=== PATIENT | female | born 1930 | race Caucasian/White ===

== ENCOUNTER 2017-03-15 12:20 | Inpatient (IN) | payer OTHER, MEDICARE ==
[~2017-03-15] VITALS: Ht 1712.2 cm; Wt 41.7 kg
[2017-03-15 13:39] LABS: HEMATOCRIT 45.2 % (36.0-46.0); MCH 28.2 PG (29.0-34.0); MCHC 33.4 G/DL (30.0-36.0); MCV 84.3 FL (83-99); MEAN PLAT.VOLUME 9.9 uM^3 (9.5-12.4); PLATELET COUNT 371 K/uL (156-360); RBC DIS.WIDTH-SD 49.3 % (39-53); RED BLOOD COUNT 5.36 M/uL (3.80-5.20); WHITE BLOOD COUNT 11.4 K/uL (4.1-10.2)
[2017-03-15 13:53] LABS: CHLORIDE 97 mEq/L (99-109); POTASSIUM 5.1 mEq/L (3.7-5.4); SODIUM 131 mEq/L (136-147)
[2017-03-15 13:54] LABS: GLUCOSE 87 mg/dL (70-99)
[2017-03-15 13:56] LABS: ANION GAP 10 MEQ/L (2-14)
[2017-03-15 13:58] LABS: GFR ESTIMATE (CALCULATED) 56 mL/min/
[2017-03-15 13:59] LABS: UREA NITROGEN (BUN) 28 mg/dL (9-23)
[2017-03-15 14:54] LABS: TOTAL BILIRUBIN 0.3 mg/dL (0.0-1.0)
[2017-03-15 14:55] LABS: ALKALINE PHOSPHATASE 72 IU/L (3-129)
[2017-03-15 14:57] LABS: DIRECT BILIRUBIN 0.1 mg/dL (0.0-0.3)
[2017-03-15 14:58] LABS: LIPASE 19 U/L (1.0-51.0)
[2017-03-15] MEDS ORDERED: SYNTHROID88 MCG PO (16:07)
[2017-03-15] MEDS ORDERED: HYOSCYAMINE0.125 M1 PO (16:07)
[2017-03-15] MEDS ORDERED: PERCOCET 10/1 TABLET PO (16:07)
[2017-03-15] MEDS ORDERED: TRAZODONE HCL50 MG PO (16:08)
[2017-03-15] MEDS ORDERED: TRAVATAN Z5 ML BOTH EYES (16:08)
[2017-03-15] MEDS ORDERED: TIZANIDINE HCL2 MG PO (16:08)
[2017-03-15] MEDS ORDERED: LISINOPRIL10 MG PO (16:08)
[2017-03-15] MEDS ORDERED: DORZOLAMIDE HCL10 ML RIGHT EYE (16:08)
[2017-03-15] MEDS ORDERED: VITAMIN E100 UNIT PO (16:09)
[2017-03-15] MEDS ORDERED: CYANOCOBALAM1000 MCG PO (16:09)
[2017-03-15] MEDS ORDERED: ASCORBIC ACID500 M3 PO (16:09)
[2017-03-15] MEDS ORDERED: CALCIUM 500 MG1 EACH PO (16:09)
[2017-03-15] MEDS ORDERED: MAGNESIUM400 M1 PO (16:09)
[2017-03-15] MEDS ORDERED: MELATONIN3 MG PO (16:10)
[2017-03-15 19:17] LABS: APPEARANCE CLEAR/COLORLESS; RED CELL AREA COUNTED 18; RED CELL COUNT 0 /MM^3 (0-1); RED CELL DILUTION 1; WBC AREA COUNTED 18; WBC DILUTION 1; WHITE CELL COUNT 0 /MM^3 (0-5); WHITE CELL RAW COUNT 0
[2017-03-15 20:46] LABS: Estimated Average Glucose 114 mg/dL (70-123); HEMOGLOBIN A1c (GLYCOHEMOGLOB) 5.6 % HGB (Below 5.7)
[2017-03-15 21:20] LABS: TOTAL CHOLESTEROL 222 mg/dL (Desirable<200); TRIGLYCERIDES 79 MG/DL (Normal: <150)
[2017-03-15 21:21] LABS: HDL CHOLESTEROL 116 MG/DL (Desirable>=50); LDL CHOLESTEROL 90 mg/dL (Desirable<100); NON-HDL CHOLESTEROL 106 mg/dL (Desirable<160)
[2017-03-15 21:35] VITALS: BP 226/95
[2017-03-15 21:51] VITALS: BP 226/95
[2017-03-16] VITALS: BP 165/77
[2017-03-16 04:00] VITALS: BP 163/72
[2017-03-16 06:02] LABS: HEMATOCRIT 40.6 % (36.0-46.0); MCH 29.3 PG (29.0-34.0); MCHC 34.2 G/DL (30.0-36.0); MCV 85.7 FL (83-99); MEAN PLAT.VOLUME 9.9 uM^3 (9.5-12.4); PLATELET COUNT 334 K/uL (156-360); RBC DIS.WIDTH-CV 16.1 % (11.8-14.6); RBC DIS.WIDTH-SD 50.4 % (39-53); RED BLOOD COUNT 4.74 M/uL (3.80-5.20)
[2017-03-16 06:48] LABS: ALKALINE PHOSPHATASE 58 IU/L (3-129); ANION GAP 5 MEQ/L (2-14); CHLORIDE 101 MEQ/L (99-109); GFR ESTIMATE (CALCULATED) > 59 mL/min/; POTASSIUM 4.9 MEQ/L (3.7-5.4); SAMPLE HEMOLYSIS CHECK 0; SAMPLE ICTERIC CHECK 0; SAMPLE LIPEMIA CHECK 0; SODIUM 133 MEQ/L (136-147); TOTAL BILIRUBIN 0.3 MG/DL (0.0-1.0); UREA NITROGEN (BUN) 19 mg/dL (9-23)
[2017-03-16 06:55] LABS: GLUCOSE 112 mg/dL (70-99)
[2017-03-16 07:25] VITALS: BP 158/72
[2017-03-16 11:08] VITALS: BP 166/75
[2017-03-16 15:30] VITALS: BP 154/71
[2017-03-16 15:53] LABS: INFLUENZA A VIRAL ANTIGEN NEGATIVE; INFLUENZA B VIRAL ANTIGEN NEGATIVE
[2017-03-16 20:08] VITALS: BP 122/68
[2017-03-17] VITALS (7 sets, daily range): BP systolic 121–169; BP diastolic 20–95
[2017-03-18 04:13] VITALS: BP 140/67
[2017-03-18 07:25] VITALS: BP 148/76
[2017-03-18 10:52] VITALS: BP 94/55
[2017-03-18 13:18] VITALS: BP 122/58
[2017-03-18] MEDS ORDERED: NIFEDIPINE ER30 MG PO (14:32)
[2017-03-18] MEDS ORDERED: TRAZODONE HCL50 MG PO (14:32)
[2017-03-18] MEDS ORDERED: TYLENOL REGULA325 MG PO (14:32)
[2017-03-18] MEDS ORDERED: Robitussin AC,Tussi- PO (14:32)
[2017-03-18] MEDS ORDERED: DOCUSATE SODIU100 MG PO (14:32)
[2017-03-18] MEDS ORDERED: DORZOLAMIDE HCL10 ML RIGHT EYE (14:32)
[2017-03-18] MEDS ORDERED: LATANOPROST2.5 ML BOTH EYES (14:32)
[2017-03-18] MEDS ORDERED: OXYCODONE-APAP1 EACH PO (14:32)
[2017-03-18] MEDS ORDERED: ASPIR-LOW81 MG PO (14:32)
== END 2017-03-18 21:17 | DRG 78 ==
LOC: EME 12:20 → EDOF 19:48 → 5SOUTH 19:48
PROVIDERS: Hospitalist; Internal Medicine; Physician Assistant
PROC: 009U3ZX Drainage of Spinal Canal, Percutaneous Approach, Diagnostic (ICD-10-PCS; principal; 2017-03-15)
DX: I67.4 Hypertensive encephalopathy (principal); E87.1 Hypo-osmolality and hyponatremia; I67.2 Cerebral atherosclerosis; R26.0 Ataxic gait; E03.9 Hypothyroidism, unspecified; R51 Headache; I65.21 Occlusion and stenosis of right carotid artery; R42 Dizziness and giddiness; B34.9 Viral infection, unspecified; R11.0 Nausea; K58.9 Irritable bowel syndrome, unspecified; D72.829 Elevated white blood cell count, unspecified; Z87.891 Personal history of nicotine dependence
CPT/HCPCS: 70450; 70551; 71020; 80048; 80053; 80061; 80076; 81003; 82945; 83036; 83690; 84157; 85027; 85651; 87070; 87205; 87502; 89051; 93005; 93880; 99281; 99285; J1644; J2270; J7030

== ENCOUNTER 2017-06-02 03:33 | Inpatient (IN) | payer OTHER, MEDICARE ==
[~2017-06-02] VITALS: Ht 157.5 cm; Wt 50.6 kg
[~2017-06-02 03:33] MED LIST: ASCORBIC ACID500 M3 PO; ASPIR-LOW81 MG PO; CALCIUM 600 +1 EAC3 PO; CYANOCOBALAM1000 MCG PO; DOCUSATE SODIU100 MG PO; DORZOLAMIDE HCL10 ML RIGHT EYE; HYOSCYAMINE0.125 M1 PO; LATANOPROST2.5 ML BOTH EYES; LEVOTHYROXINE100 MCG PO; LISINOPRIL10 MG PO; MAGNESIUM400 M1 PO; MELATONIN3 MG PO; NIFEDIPINE ER30 MG PO; OXYCODONE-APAP1 EACH PO; PERCOCET 10/1 TABLET PO; Robitussin AC,Tussi- PO; TIZANIDINE HCL2 MG PO; TRAVATAN Z5 ML BOTH EYES; TRAZODONE HCL50 MG PO; TYLENOL REGULA325 MG PO; VITAMIN E100 UNIT PO
[2017-06-02 04:14] LABS: HEMATOCRIT 36.7 % (36.0-46.0); MCHC 34.6 G/DL (30.0-36.0); MCV 83.8 FL (83-99); PLATELET COUNT 408 K/uL (156-360); RBC DIS.WIDTH-CV 14.3 % (11.8-14.6); RBC DIS.WIDTH-SD 43.8 % (39-53); RED BLOOD COUNT 4.38 M/uL (3.80-5.20); WHITE BLOOD COUNT 14.8 K/uL (4.1-10.2)
[2017-06-02 04:27] LABS: CHLORIDE 92 mEq/L (99-109); SODIUM 126 mEq/L (136-147)
[2017-06-02 04:28] LABS: GLUCOSE 117 mg/dL (70-99)
[2017-06-02 04:30] LABS: ANION GAP 10 MEQ/L (2-14)
[2017-06-02 04:32] LABS: GFR ESTIMATE (CALCULATED) 56 mL/min/
[2017-06-02 04:33] LABS: UREA NITROGEN (BUN) 15 mg/dL (9-23)
[2017-06-02 04:41] LABS: POTASSIUM 3.6 mEq/L (3.7-5.4)
[2017-06-02 08:31] LABS: ADD MIUA? YES; BILIRUBIN NEGATIVE; BLOOD NEGATIVE; COLOR STRAW ((YELLOW)); GLUCOSE (STRIP) NEGATIVE; KETONES NEGATIVE; LEUKOCYTES TRACE; NITRITE NEGATIVE; PROTEIN (STRIP) 30; SPECIFIC GRAVITY 1.011 (1.000-1.030); UROBILINOGEN 0.2 MG/DL (0.2-1.0)
[2017-06-02 08:38] LABS: BACTERIA NONE SEEN /HPF; EPITHELIAL CELLS RARE /HPF; MUCUS NONE SEEN /LPF; RED BLOOD CELLS 0-5 /HPF (0-5)
[2017-06-02 09:17] VITALS: BP 160/81
[2017-06-02 10:10] VITALS: BP 194/100
[2017-06-02] MEDS ORDERED: GABAPENTIN300 MG PO (10:28)
[2017-06-02] MEDS ORDERED: PERCOCET 10/1 TABLET PO (10:28)
[2017-06-02] MEDS ORDERED: RALOXIFENE HCL60 MG PO (10:29)
[2017-06-02] MEDS ORDERED: TRAVATAN Z5 ML BOTH EYES (10:29)
[2017-06-02] MEDS ORDERED: DULOXETINE HCL20 MG PO (10:29)
[2017-06-02] MEDS ORDERED: ZOLPIDEM TARTRAT5 MG PO (10:29)
[2017-06-02] MEDS ORDERED: OMEPRAZOLE40 M1 PO (10:29)
[2017-06-02] MEDS ORDERED: NIFEDIPINE ER30 MG PO (10:30)
[2017-06-02 11:44] VITALS: BP 163/71
[2017-06-02 15:54] VITALS: BP 167/95
[2017-06-02 19:04] VITALS: BP 180/88
[2017-06-02 23:45] LABS: POINT-OF-CARE METER ID UU14174225
[2017-06-02 23:49] VITALS: BP 131/60
[2017-06-03 03:41] VITALS: BP 127/60
[2017-06-03 05:56] LABS: POINT-OF-CARE METER ID UU14188625
[2017-06-03 07:20] VITALS: BP 174/81
[2017-06-03 10:31] LABS: HEMATOCRIT 36.2 % (36.0-46.0); MCH 30.3 PG (29.0-34.0); MCHC 34.5 G/DL (30.0-36.0); MEAN PLAT.VOLUME 10.3 uM^3 (9.5-12.4); PLATELET COUNT 376 K/uL (156-360); RBC DIS.WIDTH-CV 15.4 % (11.8-14.6); RBC DIS.WIDTH-SD 49.5 % (39-53); RED BLOOD COUNT 4.12 M/uL (3.80-5.20); WHITE BLOOD COUNT 11.9 K/uL (4.1-10.2)
[2017-06-03 10:32] LABS: MCV 87.9 FL (83-99)
[2017-06-03 10:56] LABS: ANION GAP 8 MEQ/L (2-14); CHLORIDE 104 MEQ/L (99-109); GFR ESTIMATE (CALCULATED) > 59 mL/min/; GLUCOSE 120 mg/dL (70-99); POTASSIUM 4.1 MEQ/L (3.7-5.4); SAMPLE HEMOLYSIS CHECK 0; SAMPLE ICTERIC CHECK 0; SAMPLE LIPEMIA CHECK 0; UREA NITROGEN (BUN) 7 mg/dL (9-23)
[2017-06-03 10:59] LABS: SODIUM 137 MEQ/L (136-147)
[2017-06-03 11:05] VITALS: BP 155/67
[2017-06-03 11:23] LABS: POINT-OF-CARE METER ID UU14174225
[2017-06-03 15:02] VITALS: BP 149/67
[2017-06-03 16:11] LABS: POINT-OF-CARE METER ID UU13113717
[2017-06-03 19:42] VITALS: BP 137/79
[2017-06-03 23:28] VITALS: BP 132/62
[2017-06-04 03:12] VITALS: BP 139/74
[2017-06-04 06:03] LABS: HEMATOCRIT 35.3 % (36.0-46.0); MCHC 33.1 G/DL (30.0-36.0); MCV 87.4 FL (83-99); MEAN PLAT.VOLUME 10.4 uM^3 (9.5-12.4); PLATELET COUNT 367 K/uL (156-360); RBC DIS.WIDTH-CV 15.2 % (11.8-14.6); RBC DIS.WIDTH-SD 48.8 % (39-53); RED BLOOD COUNT 4.04 M/uL (3.80-5.20); WHITE BLOOD COUNT 11.1 K/uL (4.1-10.2)
[2017-06-04 06:44] LABS: ANION GAP 8 MEQ/L (2-14); CHLORIDE 107 MEQ/L (99-109); GFR ESTIMATE (CALCULATED) > 59 mL/min/; GLUCOSE 123 mg/dL (70-99); SAMPLE HEMOLYSIS CHECK 0; SAMPLE ICTERIC CHECK 0; SAMPLE LIPEMIA CHECK 0; SODIUM 137 MEQ/L (136-147); UREA NITROGEN (BUN) 5 mg/dL (9-23)
[2017-06-04 06:50] LABS: POTASSIUM 3.1 MEQ/L (3.7-5.4)
[2017-06-04 08:04] VITALS: BP 136/71
[2017-06-04 09:17] LABS: MAGNESIUM 1.4 mg/dl (1.3-2.7)
[2017-06-04 11:31] VITALS: BP 165/77
[2017-06-04 16:23] VITALS: BP 179/83
[2017-06-04 19:38] VITALS: BP 184/97
[2017-06-05] VITALS: BP 176/86
[2017-06-05 03:43] VITALS: BP 170/77
[2017-06-05 07:40] VITALS: BP 166/80
[2017-06-05 09:20] LABS: HEMATOCRIT 35.8 % (36.0-46.0); MCHC 33.2 G/DL (30.0-36.0); MCV 87.1 FL (83-99); MEAN PLAT.VOLUME 10.4 uM^3 (9.5-12.4); PLATELET COUNT 368 K/uL (156-360); RBC DIS.WIDTH-CV 15.3 % (11.8-14.6); RED BLOOD COUNT 4.11 M/uL (3.80-5.20); WHITE BLOOD COUNT 9.4 K/uL (4.1-10.2)
[2017-06-05 09:25] LABS: POINT-OF-CARE METER ID UU13113717
[2017-06-05 09:54] LABS: ANION GAP 6 MEQ/L (2-14); CHLORIDE 108 MEQ/L (99-109); POTASSIUM 3.3 MEQ/L (3.7-5.4); SAMPLE HEMOLYSIS CHECK 0; SAMPLE ICTERIC CHECK 0; SAMPLE LIPEMIA CHECK 0; SODIUM 137 MEQ/L (136-147)
[2017-06-05 09:59] LABS: GFR ESTIMATE (CALCULATED) > 59 mL/min/; GLUCOSE 131 mg/dL (70-99); UREA NITROGEN (BUN) 7 mg/dL (9-23)
[2017-06-05 11:26] VITALS: BP 161/78
[2017-06-05 11:47] LABS: MAGNESIUM 1.8 mg/dl (1.3-2.7)
[2017-06-05 15:31] VITALS: BP 153/78
[2017-06-05 15:46] LABS: POINT-OF-CARE METER ID UU13113717
[2017-06-05 18:51] VITALS: BP 132/74
[2017-06-06] VITALS (22 sets, daily range): BP systolic 0–155; BP diastolic 0–112
[2017-06-06 01:53] LABS: METH RESISTANT S AUREUS PCR POSITIVE (NEGATIVE)
[2017-06-06 01:58] LABS: PROBE CHECK PASS
[2017-06-06 03:39] LABS: BASE EXCESS -8.3 mEq/L (-3 to +3); BICARBONATE 17.1 mEq/L (22-26); CARBOXY HGB 1.5 % (0-5); COMMENTS - BLOOD GASES A+C+; DEVICE VENT; FI02 50 %; METHEMOGLOBIN 1.9 % (0-1.5); MODE AC; PCO2 34 mm Hg (35-45); PO2 153 mm Hg (80-100); SITE RR; pH 7.31 (7.35-7.45)
[2017-06-06 03:40] LABS: MECHANICAL RATE 14 resp/min; PEEP 5 CM/H20; TIDAL VOLUME 450 ML; TOTAL RESP RATE 14 resp/min
[2017-06-06 03:42] LABS: EOSINOPHIL (%) 0 % (0-5); HEMATOCRIT 38.5 % (36.0-46.0); IMMATURE GRANULOCYTE COUNT 0.2 K/uL; INSTRUMENT ABS NEUTROPHIL CT 18.8 K/uL; LYMPHOCYTE COUNT 1.1 K/uL (1.0-2.8); MCH 29.3 PG (29.0-34.0); MCHC 33.2 G/DL (30.0-36.0); MCV 88.1 FL (83-99); MEAN PLAT.VOLUME 10.3 uM^3 (9.5-12.4); MONOCYTE COUNT 1.5 K/uL (0-0.8); NEUTROPHIL (%) 86.6 % (45-76); NEUTROPHIL COUNT 18.8 K/uL (1.8-6.4); PLATELET COUNT 375 K/uL (156-360); RBC DIS.WIDTH-CV 15.7 % (11.8-14.6); RED BLOOD COUNT 4.37 M/uL (3.80-5.20); WHITE BLOOD COUNT 21.7 K/uL (4.1-10.2)
[2017-06-06 03:56] LABS: POTASSIUM 3.4 mEq/L (3.7-5.4); SODIUM 139 mEq/L (136-147)
[2017-06-06 03:57] LABS: MAGNESIUM 1.4 mg/dL (1.3-2.7)
[2017-06-06 03:58] LABS: GLUCOSE 157 mg/dL (70-99)
[2017-06-06 03:59] LABS: CHLORIDE 113 mEq/L (99-109)
[2017-06-06 04:00] LABS: ANION GAP 11 MEQ/L (2-14)
[2017-06-06 04:02] LABS: GFR ESTIMATE (CALCULATED) > 59 mL/min/
[2017-06-06 04:03] LABS: UREA NITROGEN (BUN) 8 mg/dL (9-23)
[2017-06-07] VITALS (19 sets, daily range): BP systolic 114–167; BP diastolic 64–105
[2017-06-07 09:03] LABS: HEMATOCRIT 32.4 % (36.0-46.0); MCH 29.9 PG (29.0-34.0); MCHC 33.6 G/DL (30.0-36.0); MEAN PLAT.VOLUME 10.4 uM^3 (9.5-12.4); PLATELET COUNT 335 K/uL (156-360); RBC DIS.WIDTH-CV 15.9 % (11.8-14.6); RBC DIS.WIDTH-SD 52.5 % (39-53); RED BLOOD COUNT 3.64 M/uL (3.80-5.20); WHITE BLOOD COUNT 16.7 K/uL (4.1-10.2)
[2017-06-07 11:46] LABS: ANION GAP 5 MEQ/L (2-14); CHLORIDE 116 MEQ/L (99-109); GFR ESTIMATE (CALCULATED) > 59 mL/min/; GLUCOSE 106 mg/dL (70-99); POTASSIUM 3.9 MEQ/L (3.7-5.4); SAMPLE HEMOLYSIS CHECK 0; SAMPLE ICTERIC CHECK 0; SAMPLE LIPEMIA CHECK 0; SODIUM 142 MEQ/L (136-147); UREA NITROGEN (BUN) 6 mg/dL (9-23)
[2017-06-08] VITALS (9 sets, daily range): BP systolic 134–154; BP diastolic 57–90
[2017-06-08 05:54] LABS: EOSINOPHIL (%) 0.5 % (0-5); EOSINOPHIL COUNT 0.1 K/uL (0-0.3); HEMATOCRIT 32.8 % (36.0-46.0); IMMATURE GRANULOCYTE (%) 0.8 % (0.0-0.7); IMMATURE GRANULOCYTE COUNT 0.1 K/uL; INSTRUMENT ABS NEUTROPHIL CT 12.4 K/uL; LYMPHOCYTE COUNT 1.2 K/uL (1.0-2.8); MCH 28.8 PG (29.0-34.0); MCHC 32.9 G/DL (30.0-36.0); MCV 87.5 FL (83-99); MEAN PLAT.VOLUME 10.7 uM^3 (9.5-12.4); MONOCYTE (%) 11.5 % (3-12); MONOCYTE COUNT 1.8 K/uL (0-0.8); NEUTROPHIL (%) 79.2 % (45-76); NEUTROPHIL COUNT 12.4 K/uL (1.8-6.4); PLATELET COUNT 350 K/uL (156-360); RBC DIS.WIDTH-CV 15.8 % (11.8-14.6); RBC DIS.WIDTH-SD 50.7 % (39-53); RED BLOOD COUNT 3.75 M/uL (3.80-5.20); WHITE BLOOD COUNT 15.6 K/uL (4.1-10.2)
[2017-06-08 06:32] LABS: ANION GAP 8 MEQ/L (2-14); CHLORIDE 109 MEQ/L (99-109); GFR ESTIMATE (CALCULATED) > 59 mL/min/; GLUCOSE 131 mg/dL (70-99); POTASSIUM 3.6 MEQ/L (3.7-5.4); SAMPLE HEMOLYSIS CHECK 0; SAMPLE ICTERIC CHECK 0; SAMPLE LIPEMIA CHECK 0; SODIUM 138 MEQ/L (136-147); UREA NITROGEN (BUN) 6 mg/dL (9-23)
[2017-06-08 06:33] LABS: MAGNESIUM 1.3 mg/dl (1.3-2.7)
[2017-06-09] VITALS (8 sets, daily range): BP systolic 0–156; BP diastolic 0–83
[2017-06-09 06:12] LABS: HEMATOCRIT 32.6 % (36.0-46.0); MCH 29.8 PG (29.0-34.0); MCV 87.4 FL (83-99); MEAN PLAT.VOLUME 10.7 uM^3 (9.5-12.4); PLATELET COUNT 396 K/uL (156-360); RBC DIS.WIDTH-CV 15.9 % (11.8-14.6); RBC DIS.WIDTH-SD 51.3 % (39-53); RED BLOOD COUNT 3.73 M/uL (3.80-5.20)
[2017-06-09 07:04] LABS: ANION GAP 8 MEQ/L (2-14); CHLORIDE 108 MEQ/L (99-109); GFR ESTIMATE (CALCULATED) > 59 mL/min/; GLUCOSE 114 mg/dL (70-99); MAGNESIUM 1.2 mg/dl (1.3-2.7); POTASSIUM 4.1 MEQ/L (3.7-5.4); SAMPLE HEMOLYSIS CHECK 0; SAMPLE ICTERIC CHECK 0; SAMPLE LIPEMIA CHECK 0; SODIUM 140 MEQ/L (136-147); UREA NITROGEN (BUN) 9 mg/dL (9-23)
[2017-06-10 03:46] VITALS: BP 136/65
[2017-06-10 07:23] LABS: HEMATOCRIT 34.6 % (36.0-46.0); MCH 28.8 PG (29.0-34.0); MCHC 32.9 G/DL (30.0-36.0); MCV 87.4 FL (83-99); MEAN PLAT.VOLUME 10.3 uM^3 (9.5-12.4); PLATELET COUNT 429 K/uL (156-360); RBC DIS.WIDTH-CV 15.6 % (11.8-14.6); RBC DIS.WIDTH-SD 49.9 % (39-53); RED BLOOD COUNT 3.96 M/uL (3.80-5.20); WHITE BLOOD COUNT 11.5 K/uL (4.1-10.2)
[2017-06-10 07:24] LABS: IMM.PLATELET FRACTION 2.6 (1-7)
[2017-06-10 07:43] LABS: ANION GAP 9 MEQ/L (2-14); CHLORIDE 110 MEQ/L (99-109); GFR ESTIMATE (CALCULATED) > 59 mL/min/; GLUCOSE 87 mg/dL (70-99); SAMPLE HEMOLYSIS CHECK 0; SAMPLE ICTERIC CHECK 0; SAMPLE LIPEMIA CHECK 0; SODIUM 144 MEQ/L (136-147); UREA NITROGEN (BUN) 7 mg/dL (9-23)
[2017-06-10 07:46] LABS: MAGNESIUM 1.5 mg/dl (1.3-2.7)
[2017-06-10 08:15] VITALS: BP 160/68
[2017-06-10 11:50] VITALS: BP 164/72
[2017-06-10 15:25] VITALS: BP 158/68
[2017-06-10 20:02] VITALS: BP 131/71
[2017-06-10 23:29] VITALS: BP 165/74
[2017-06-11 03:41] VITALS: BP 171/77
[2017-06-11 06:14] LABS: HEMATOCRIT 32.6 % (36.0-46.0); MCH 28.7 PG (29.0-34.0); MCHC 33.7 G/DL (30.0-36.0); MCV 85.1 FL (83-99); MEAN PLAT.VOLUME 10.2 uM^3 (9.5-12.4); PLATELET COUNT 451 K/uL (156-360); RBC DIS.WIDTH-CV 15.2 % (11.8-14.6); RBC DIS.WIDTH-SD 47.5 % (39-53); RED BLOOD COUNT 3.83 M/uL (3.80-5.20); WHITE BLOOD COUNT 9.7 K/uL (4.1-10.2)
[2017-06-11 07:30] VITALS: BP 133/89
[2017-06-11] MEDS ORDERED: AMOX TR-K CLV1 EAC3 PO (09:41)
[2017-06-11] MEDS ORDERED: LOVENOX30 MG/0.3 SC (09:42)
[2017-06-11] MEDS ORDERED: APRESOLINE20 MG/ML IM (11:42)
[2017-06-11] MEDS ORDERED: SENNA8.6 MG PO (11:44)
[2017-06-11] MEDS ORDERED: PEPCID20 MG PO (11:44)
[2017-06-11] MEDS ORDERED: LIDODERM 5% P1 PATCH TD (11:46)
== END 2017-06-11 10:50 | DRG 854 ==
LOC: EME → EDBD 03:33 → 4WEST 07:55 → EDOF 07:55 → 2EAST 07:55 → 5SOUTH 07:55 → EDOF 08:00 → ENRESERV 08:00 → EDOF 09:18 → ENRESERV 16:41 → 5SOUTH 18:51 → 4WEST 06-05 22:50 → ENRESERV 06-05 22:51 → 4WEST 06-06 00:43 → ENRESERV 06-09 13:28 → 2EAST 06-09 14:45
PROVIDERS: Emergency Medicine; Internal Medicine; Internal Medicine Critical Care Medicine; Nurse Practitioner Adult Health; Physician Assistant Medical; Specialist; Surgery
DX: A41.51 Sepsis due to Escherichia coli [E. coli] (principal); K57.20 Diverticulitis of large intestine with perforation and abscess without bleeding; E03.9 Hypothyroidism, unspecified; K21.9 Gastro-esophageal reflux disease without esophagitis; I10 Essential (primary) hypertension; E86.1 Hypovolemia; E87.1 Hypo-osmolality and hyponatremia; E44.0 Moderate protein-calorie malnutrition; Z68.1 Body mass index [BMI] 19.9 or less, adult; T81.4XXA Infection following a procedure, initial encounter; L03.311 Cellulitis of abdominal wall; Y92.239 Unspecified place in hospital as the place of occurrence of the external cause; Z87.891 Personal history of nicotine dependence; K52.9 Noninfective gastroenteritis and colitis, unspecified
CPT/HCPCS: 36600; 71010; 74000; 74020; 80048; 80048 91; 81003; 82803; 82948; 83605; 83735; 84100; 85025; 85027; 85651; 87040; 87070; 87075; 87086; 87106; 87177; 87205; 87493; 87506; 87641; 88307; 93005; 94002; 94003; 97530 GO; 97530 GP; 99281; 99284; J0330; J0360; J0610; J0696; J1170; J1650; J2270; J2405; J2543; J2704; J3010; J3475; J3480; J7030; J7040; J7042; J7050; S0028; S0030

== ENCOUNTER 2017-06-11 09:33 | Inpatient (IN) | payer OTHER, MEDICARE ==
[~2017-06-11] VITALS: Ht 160 cm; Wt 43.6 kg
[~2017-06-11 09:33] MED LIST changes: +DULOXETINE HCL20 MG PO; +GABAPENTIN300 MG PO; +OMEPRAZOLE40 M1 PO; +RALOXIFENE HCL60 MG PO; +ZOLPIDEM TARTRAT5 MG PO
[2017-06-11] MEDS ORDERED: AMOX TR-K CLV1 EAC3 PO (09:41)
[2017-06-11] MEDS ORDERED: LOVENOX30 MG/0.3 SC (09:42)
[2017-06-11 11:27] VITALS: BP 107/58
[2017-06-11] MEDS ORDERED: APRESOLINE20 MG/ML IM (11:42)
[2017-06-11] MEDS ORDERED: SENNA8.6 MG PO (11:44)
[2017-06-11] MEDS ORDERED: PEPCID20 MG PO (11:44)
[2017-06-11] MEDS ORDERED: LIDODERM 5% P1 PATCH TD (11:46)
[2017-06-11 15:01] VITALS: BP 121/55
[2017-06-12 00:32] VITALS: BP 132/80
[2017-06-12 05:04] VITALS: BP 144/68
[2017-06-12 07:06] LABS: HEMATOCRIT 30.2 % (36.0-46.0); MCH 28.8 PG (29.0-34.0); MCHC 34.1 G/DL (30.0-36.0); MCV 84.4 FL (83-99); MEAN PLAT.VOLUME 10.4 uM^3 (9.5-12.4); PLATELET COUNT 442 K/uL (156-360); RBC DIS.WIDTH-SD 45.8 % (39-53); RED BLOOD COUNT 3.58 M/uL (3.80-5.20); WHITE BLOOD COUNT 8.2 K/uL (4.1-10.2)
[2017-06-12 07:52] LABS: ALKALINE PHOSPHATASE 37 IU/L (3-129); ANION GAP 9 MEQ/L (2-14); CHLORIDE 106 MEQ/L (99-109); GFR ESTIMATE (CALCULATED) > 59 mL/min/; GLUCOSE 90 mg/dL (70-99); MAGNESIUM 1.4 mg/dl (1.3-2.7); SAMPLE HEMOLYSIS CHECK 0; SAMPLE ICTERIC CHECK 0; SAMPLE LIPEMIA CHECK 0; SODIUM 144 MEQ/L (136-147); TOTAL BILIRUBIN 0.4 MG/DL (0.0-1.0); UREA NITROGEN (BUN) 8 mg/dL (9-23)
[2017-06-12 07:53] LABS: POTASSIUM 3.1 MEQ/L (3.7-5.4)
[2017-06-12 15:55] VITALS: BP 141/61
[2017-06-13 05:38] VITALS: BP 147/75
[2017-06-13 15:36] VITALS: BP 112/55
[2017-06-14 05:10] VITALS: BP 125/59
[2017-06-14 15:43] VITALS: BP 130/84
[2017-06-15 05:07] VITALS: BP 107/58
[2017-06-15 09:30] LABS: MCHC 32.7 G/DL (30.0-36.0); MCV 88.5 FL (83-99); MEAN PLAT.VOLUME 10.6 uM^3 (9.5-12.4); PLATELET COUNT 520 K/uL (156-360); RBC DIS.WIDTH-CV 15.7 % (11.8-14.6); RBC DIS.WIDTH-SD 50.3 % (39-53); RED BLOOD COUNT 3.73 M/uL (3.80-5.20); WHITE BLOOD COUNT 12.4 K/uL (4.1-10.2)
[2017-06-15 10:09] LABS: ALKALINE PHOSPHATASE 40 IU/L (3-129); ANION GAP 8 MEQ/L (2-14); CHLORIDE 98 MEQ/L (99-109); GFR ESTIMATE (CALCULATED) 56 mL/min/; GLUCOSE 129 mg/dL (70-99); SAMPLE HEMOLYSIS CHECK 0; SAMPLE ICTERIC CHECK 0; SAMPLE LIPEMIA CHECK 0; TOTAL BILIRUBIN 0.4 MG/DL (0.0-1.0); UREA NITROGEN (BUN) 13 mg/dL (9-23)
[2017-06-15 10:12] LABS: POTASSIUM 4.8 MEQ/L (3.7-5.4); SODIUM 134 MEQ/L (136-147)
[2017-06-15 15:50] VITALS: BP 130/61
[2017-06-16 04:52] VITALS: BP 100/57
[2017-06-16] MEDS ORDERED: TYLENOL REGULA325 MG PO (13:52)
[2017-06-16] MEDS ORDERED: THERAGRAN1 TABLET PO (13:55)
[2017-06-16] MEDS ORDERED: OXYCODONE HCL15 MG PO (14:03)
== END 2017-06-16 15:36 | DRG 949 ==
LOC: 3WEST 09:33 → EDPENDDISDT 06-16 → 3WEST 06-16 15:36 → EDPENDDISDT 06-20 → ENPENDDIS 06-20
PROVIDERS: Physical Medicine & Rehabilitation Pain Medicine
PROC: F07M0ZZ Range of Motion and Joint Mobility Treatment of Musculoskeletal System - Whole Body (ICD-10-PCS; principal; 2017-06-11)
DX: Z48.815 Encounter for surgical aftercare following surgery on the digestive system (principal); R26.2 Difficulty in walking, not elsewhere classified; D62 Acute posthemorrhagic anemia; Z68.1 Body mass index [BMI] 19.9 or less, adult; L03.90 Cellulitis, unspecified; E87.1 Hypo-osmolality and hyponatremia; E03.9 Hypothyroidism, unspecified; Z74.09 Other reduced mobility; I10 Essential (primary) hypertension; E83.39 Other disorders of phosphorus metabolism; E83.51 Hypocalcemia; E87.6 Hypokalemia; G89.18 Other acute postprocedural pain; G89.29 Other chronic pain; H40.9 Unspecified glaucoma; H91.90 Unspecified hearing loss, unspecified ear; M54.5 Low back pain; Z93.3 Colostomy status; Z98.0 Intestinal bypass and anastomosis status; Z88.2 Allergy status to sulfonamides; Z90.49 Acquired absence of other specified parts of digestive tract
CPT/HCPCS: 80053; 83735; 84100; 85027; 97530 GP; J1650; Q0169

== ENCOUNTER 2017-06-24 20:17 | Inpatient (IN) | payer OTHER, MEDICARE ==
[~2017-06-24] VITALS: Ht 160 cm; Wt 41.6 kg
[~2017-06-24 20:17] MED LIST changes: +AMOX TR-K CLV1 EAC3 PO; +APRESOLINE20 MG/ML IM; +LIDODERM 5% P1 PATCH TD; +LOVENOX30 MG/0.3 SC; +OXYCODONE HCL15 MG PO; +PEPCID20 MG PO; +SENNA8.6 MG PO; +THERAGRAN1 TABLET PO
[2017-06-24 21:53] LABS: EOSINOPHIL (%) 2.6 % (0-5); EOSINOPHIL COUNT 0.2 K/uL (0-0.3); HEMATOCRIT 30.3 % (36.0-46.0); IMMATURE GRANULOCYTE (%) 0.6 % (0.0-0.7); IMMATURE GRANULOCYTE COUNT 0.1 K/uL; INSTRUMENT ABS NEUTROPHIL CT 4.5 K/uL; LYMPHOCYTE COUNT 2.5 K/uL (1.0-2.8); MCH 28.9 PG (29.0-34.0); MCHC 33.3 G/DL (30.0-36.0); MCV 86.6 FL (83-99); MEAN PLAT.VOLUME 10.2 uM^3 (9.5-12.4); MONOCYTE (%) 11.9 % (3-12); NEUTROPHIL (%) 54.4 % (45-76); NEUTROPHIL COUNT 4.5 K/uL (1.8-6.4); PLATELET COUNT 644 K/uL (156-360); RBC DIS.WIDTH-CV 15.4 % (11.8-14.6); RBC DIS.WIDTH-SD 48.8 % (39-53); WHITE BLOOD COUNT 8.3 K/uL (4.1-10.2)
[2017-06-24 22:04] LABS: CHLORIDE 107 mEq/L (99-109); POTASSIUM 4.2 mEq/L (3.7-5.4); SODIUM 136 mEq/L (136-147)
[2017-06-24 22:05] LABS: ADD MIUA? YES; BILIRUBIN NEGATIVE; BLOOD NEGATIVE; COLOR YELLOW ((YELLOW)); GLUCOSE (STRIP) NEGATIVE; KETONES NEGATIVE; LEUKOCYTES MODERATE; NITRITE NEGATIVE; PROTEIN (STRIP) NEGATIVE; SPECIFIC GRAVITY 1.012 (1.000-1.030); UROBILINOGEN 0.2 MG/DL (0.2-1.0)
[2017-06-24 22:06] LABS: GLUCOSE 103 mg/dL (70-99)
[2017-06-24 22:07] LABS: ANION GAP 9 MEQ/L (2-14)
[2017-06-24 22:08] LABS: TOTAL BILIRUBIN 0.2 mg/dL (0.0-1.0)
[2017-06-24 22:09] LABS: ALKALINE PHOSPHATASE 58 IU/L (3-129)
[2017-06-24 22:10] LABS: GFR ESTIMATE (CALCULATED) 56 mL/min/
[2017-06-24 22:11] LABS: UREA NITROGEN (BUN) 20 mg/dL (9-23)
[2017-06-24 22:13] LABS: LIPASE 13 U/L (1.0-51.0)
[2017-06-24 22:23] LABS: BACTERIA RARE /HPF; EPITHELIAL CELLS 1+ /HPF; MUCUS TRACE /LPF; RED BLOOD CELLS 0-5 /HPF (0-5); UCUL ADDED? YES; WHITE BLOOD CELLS 30-40 /HPF (0-5)
[2017-06-25 03:15] VITALS: BP 139/67
[2017-06-25 04:30] LABS: METH RESISTANT S AUREUS PCR POSITIVE (NEGATIVE)
[2017-06-25 04:36] LABS: PROBE CHECK PASS
[2017-06-25 07:33] VITALS: BP 102/57
[2017-06-25 11:35] VITALS: BP 123/58
[2017-06-25 15:45] VITALS: BP 104/62
[2017-06-25 21:23] VITALS: BP 145/65
[2017-06-26 00:52] VITALS: BP 101/55
[2017-06-26 04:25] VITALS: BP 107/57
[2017-06-26 07:45] VITALS: BP 129/61
[2017-06-26] MEDS ORDERED: ROCEPHIN1 GM/50 ML IV (14:23)
[2017-06-26 15:40] VITALS: BP 147/69
[2017-06-26 17:08] VITALS: BP 146/69
== END 2017-06-26 16:17 | DRG 690 ==
LOC: EME → EDBD 20:17 → 2EAST 06-25 01:18 → EDOF 06-25 01:18 → ENRESERV 06-25 01:21 → EDOF 06-25 03:00 → 2EAST 06-25 03:00
PROVIDERS: Emergency Medicine; Surgery
DX: N39.0 Urinary tract infection, site not specified (principal); B96.1 Klebsiella pneumoniae [K. pneumoniae] as the cause of diseases classified elsewhere; I10 Essential (primary) hypertension; E03.9 Hypothyroidism, unspecified; Z93.3 Colostomy status; Z90.49 Acquired absence of other specified parts of digestive tract; Z87.442 Personal history of urinary calculi; Z87.891 Personal history of nicotine dependence; Z88.2 Allergy status to sulfonamides
CPT/HCPCS: 74177; 80053; 81003; 83605; 83690; 85025; 87077; 87086; 87186; 87641; 99281; 99285; J1170; J1650; J2405; J2543; J3010; J7050; J7120

== ENCOUNTER 2018-03-05 10:37 | Day surgery (SDC) | payer OTHER, MEDICARE ==
[~2018-03-05] VITALS: Ht 161.3 cm; Wt 47.6 kg
[~2018-03-05 10:37] MED LIST changes: +OXYCODONE HCL10 MG PO; +ROCEPHIN1 GM/50 ML IV
== END 2018-03-05 12:30 | disposition home or self-care (01) ==
LOC: PAIN 10:37 → SDC 11:00 → PAIN 11:00
DX: M47.816 Spondylosis without myelopathy or radiculopathy, lumbar region (principal); M19.012 Primary osteoarthritis, left shoulder; M41.9 Scoliosis, unspecified; G89.29 Other chronic pain; E78.00 Pure hypercholesterolemia, unspecified; I10 Essential (primary) hypertension; K21.9 Gastro-esophageal reflux disease without esophagitis; E03.9 Hypothyroidism, unspecified; Z88.2 Allergy status to sulfonamides; Z87.891 Personal history of nicotine dependence
CPT/HCPCS: J1030; J2250; S0020

== ENCOUNTER 2018-03-13 10:03 | Day surgery (SDC) | payer OTHER, MEDICARE ==
[~2018-03-13] VITALS: Ht 161.3 cm; Wt 44.0 kg
== END 2018-03-13 11:35 | disposition home or self-care (01) ==
LOC: PAIN 10:03 → SDC 10:30 → PAIN 11:35
PROC: 3E0T3BZ Introduction of Anesthetic Agent into Peripheral Nerves and Plexi, Percutaneous Approach (ICD-10-PCS; principal; 2018-03-13)
PROC: 3E0T33Z Introduction of Anti-inflammatory into Peripheral Nerves and Plexi, Percutaneous Approach (ICD-10-PCS; principal; 2018-03-13)
PROC: BR161ZZ Fluoroscopy of Lumbar Facet Joint(s) using Low Osmolar Contrast (ICD-10-PCS; principal; 2018-03-13)
DX: M47.816 Spondylosis without myelopathy or radiculopathy, lumbar region (principal); G89.29 Other chronic pain; M19.012 Primary osteoarthritis, left shoulder; I10 Essential (primary) hypertension; F41.9 Anxiety disorder, unspecified; I48.91 Unspecified atrial fibrillation; E78.00 Pure hypercholesterolemia, unspecified; E03.9 Hypothyroidism, unspecified; M41.9 Scoliosis, unspecified; Z88.2 Allergy status to sulfonamides; K21.9 Gastro-esophageal reflux disease without esophagitis; Z87.891 Personal history of nicotine dependence; Z79.891 Long term (current) use of opiate analgesic
CPT/HCPCS: J1030; S0020

== ENCOUNTER 2018-04-19 09:10 | Day surgery (SDC) | payer OTHER, MEDICARE ==
[~2018-04-19] VITALS: Ht 160 cm; Wt 45.8 kg
[~2018-04-19 09:10] MED LIST changes: +AMBIEN5 MG PO; +EVISTA60 MG PO; -OXYCODONE HCL10 MG PO; -RALOXIFENE HCL60 MG PO; -SENNA8.6 MG PO; +SENOKOT,SENN1 TABLET PO; +TOPROL XL25 MG PO
== END 2018-04-19 11:20 | disposition home or self-care (01) ==
LOC: PAIN 09:10 → SDC 11:15 → PAIN 11:20
DX: M47.816 Spondylosis without myelopathy or radiculopathy, lumbar region (principal); M50.30 Other cervical disc degeneration, unspecified cervical region; M19.90 Unspecified osteoarthritis, unspecified site; M25.512 Pain in left shoulder; Z87.891 Personal history of nicotine dependence
CPT/HCPCS: J1030; J3010; S0020